=== PATIENT | female | born 1970 | race Caucasian/White ===

== ENCOUNTER 2018-03-22 03:31 | Inpatient (IN) | payer OTHER ==
[~2018-03-22] VITALS: Ht 177.8 cm; Wt 86.2 kg
[~2018-03-22 03:31] MED LIST: AMITRIPTYLINE H50 M2 PO; AMLODIPINE BESY10 M1 PO; COZAAR100 M1 PO; HYDROCHLOROTH12.5 M2 PO
--- NOTE | 2018-03-22 11:17 | Operative Report ---
Operative/Inv Procedure Report Surgery Date: 03/22/18 Name of Procedure: Anterior cervical decompression fusion with interdiscal cage and autologous bone graft and anterior plate fixation C3 4 C4 5 C5 6 harvesting of left anterior iliac crest morselized bone graft. Master graft implant graft site. These fluoroscopy. Pre-Operative Diagnosis: Cervical stenosis disc herniation [id number] C5 6 Post-Operative Diagnosis: Same additional diagnosis osteoporosis Estimated Blood Loss: 50ml to 100ml Surgeon/Furniture Decals Inspector: Gopal RAMIREZ,Pillo MARS Anesthesia: general endotracheal tube Operative/Procedure Note Note: After adequate general anesthesia was achieved the patient was placed in the supine position with the head turned to the left and the shoulders taped to the side. The right side of the neck and left anterior iliac crest were sterilely prepped and draped. A longitudinal incision was created adjacent to the visceral structures and sharply through the platysma. A blunt dissection was carried medial to the neurovascular bundle lateral to the visceral structures the esophagus was identified as was the carotid artery and the deep retractors were placed with avoidance of distraction on the recurrent laryngeal nerve I bent needle was placed within the C5 6 disc space and fluoroscopy was used to identify surgical level. Sharp annulotomy was created in the [id number] disc spaces and the curettes and disc rongeurs were used to debride the disc spaces there is severe bony degeneration at C45 with significant harden osteophytes posteriorly which were all debrided with the Kerrison and curettes. A section was carried through the posterior longitudinal ligament and annulus. A similar dissection was carried out above and below that level at C3 4 and C5 6. There is a large herniated fragment of disc material on the left side at C56. There was a large bony and thickened soft tissue ridge which was debrided at C34. Patient's bone was very soft. An incision was made in the anterior iliac crest on the left side and carried sharply over the crest with electrocautery. The oscillating saw was used to collect 3 wafers of corticocancellous bone. The wound was irrigated closed in layers with absorbable suture with helen in the skin. The cage trials were used to select the appropriate thickness of the cage. A narrow cage was used as the opportunity disc spaces and a wide cage was used at C5 6. The cages were packed with cancellus bone which was removed from the tricortical graft. Cages were tamped into position under fluoroscopic guidance. Cages were well away from the neural canal. An anterior plate was then applied and due to osteoporosis 14 mm screws were used with reasonable purchase in all 8 sites. The construct was checked in AP and lateral plane and found to be appropriate under fluoroscopy. The wound was irrigated hemostasis been achieved. A closure the platysma was performed with absorbable suture the skin was closed with nylon. After placement of sterile dressings a cervical collar was applied the patient was transferred to the stretcher Findings: Severe osteoporosis
--- NOTE | 2018-03-22 12:14 | Patient Discharge Instructions ---
Acute Coronary Syndrome Inclusion Criteria At DC or during hospital stay patient has or had the following: ACS DIAGNOSIS No Discharge Core Measures Meds if any: Prescribed or Continued at Discharge Meds if any: NOT Prescribed or Continued at Discharge Congestive Heart Failure Inclusion Criteria At DC or during hospital stay patient has or had the following: CHF DIAGNOSIS No Discharge Core Measures Meds if any: Prescribed or Continued at Discharge Meds if any: NOT Prescribed or Continued at Discharge Cerebrovascular accident Inclusion Criteria At DC or during hospital stay patient has or had the following: CVA/TIA Diagnosis No Discharge Core Measures Meds if any: Prescribed or Continued at Discharge Meds if any: NOT Prescribed or Continued at Discharge Venous thromboembolism Inclusion Criteria VTE Diagnosis No VTE Type NONE VTE Confirmed by (Test) NONE Discharge Core Measures - Per Current guidelines, there needs to be overlap - treatment for the first 5 days of Warfarin therapy. - If discharged on Warfarin prior to 5 days of - overlap therapy, the patient will need to be - assessed for post discharge needs including - *Post discharge parental anticoagulation - *Warfarin and/or parental anticoagulation education - *Follow up date to check INR post discharge At least 5 days overlap therapy as Inpatient No Meds if any: Prescribed or Continued at Discharge Note: Overlap Therapy is Warfarin and Anticoagulant Meds if any: NOT Prescribed or Continued at Discharge
[2018-03-22] MEDS ORDERED: TYLENOL EXTRA500 M2 PO (12:16)
[2018-03-22] MEDS ORDERED: OS-CAL 500+D31 EAC1 PO (12:16)
[2018-03-22] MEDS ORDERED: DULCOLAX10 M1 RC (12:16)
[2018-03-22] MEDS ORDERED: MULTIVITAMINS1 EAC9 PO (12:16)
[2018-03-22] MEDS ORDERED: MILK OF MA400 MG/52 PO (12:16)
[2018-03-22] MEDS ORDERED: PERCOCET 5-3251 EACH PO (12:16)
[2018-03-22] MEDS ORDERED: VITAMIN D31000 UNI2 PO (12:16)
[2018-03-22] MEDS ORDERED: COLACE100 M1 PO (12:16)
[2018-03-22 14:48] VITALS: BP 116/66
--- NOTE | 2018-03-22 15:00 | RADIOLOGY REPORT ---
EXAMINATION: CR CERVICAL SPINE OR CLINICAL INFORMATION: C3 fusion in OR COMPARISON: None TECHNIQUE: AP and lateral spot images from the C3 C6 fusion performed by Dr. Pillo Herron were submitted. Fluoroscopy time: 0.1 minutes. DOSE AREA PRODUCT: 0.0127 mGy-m2 (milligray-meter squared) FINDINGS/IMPRESSION: ACDF plate and interbody fusion cages are present from C3 through C6. Alignment appears anatomic. Endotracheal tube and a surgical pad are present in the anterior soft tissues.
--- NOTE | 2018-03-22 16:15 | PN- Neurosurgical ---
Subjective Subjective: POST-OP NOTE Patient reports nausea and was actively vomiting during visit. Reports anticipated neck discomfort. No dizziness. No shortness of breath. No chest pains. Objective Vital Signs and I&Os Vital Signs Date Time Temp Pulse Resp B/P B/P Pulse O2 O2 Flow FiO2 Mean Ox Delivery Rate 03/22 1448 97.2 72 16 116/66 03/22 1445 Nasal 2.0L Cannula Intake & Output 03/22 1600 03/22 0800 03/22 0000 03/21 1600 03/21 0800 03/21 0000 Intake Total Output Total Balance Patient 190 lb Weight Physical Exam: General - alert & oriented x 3. uncomfortable. no acute distress. Neck - soft cervical collar in place. dressing c/d/i. no drains. no hematoma. Lungs - clear bilaterally. no w/r/r. Cardiac - s1s2. reg. Abdomen - soft. nontender. Extremities - cool bilateral hands. palpable radial pulses b/l. strong drywall boardhanger strength b/l. nvi. calves soft and nontender. athrombics active b/l. left hip dressing c/d/i. Current Medications: Current Medications Sig/Kathryn Start time Last Medication Dose Route Stop Time Status Admin Acetaminophen 650 MG Q4P PRN 03/22 1215 AC PO Acetaminophen 0 .STK-MED ONE 03/22 0651 DC IV Amitriptyline HCl 50 MG QAM 03/23 900 AC PO Amlodipine Besylate 10 MG DAILY 03/23 09 AC PO Bisacodyl 10 MG DAILY NEEDED PRN 03/22 1215 AC OR Calcium 600 MG BID 03/22 2100 AC PO Cefazolin Sodium 1,000 MG IQ8 03/22 1600 AC 03/22 IV 03/23 0801 1606 Cefazolin Sodium 2,000 MG ONCE 03/22 0000 NR IV 03/22 2359 Cholecalciferol 1,000 IU DAILY 03/23 09 AC PO Docusate Sodium 100 MG BID 03/22 2100 AC PO Fentanyl Citrate 0 .STK-MED ONE 03/22 0653 DC .ROUTE Gelatin 0 .STK-MED ONE 03/22 0805 DC TOP Haloperidol 0 .STK-MED ONE 03/22 1250 DC .ROUTE Hydrochlorothiazide 12.5 MG DAILY 03/23 09 AC PO Hydromorphone HCl 0 .STK-MED ONE 03/22 1214 DC .ROUTE Hydromorphone HCl 0 .STK-MED ONE 03/22 0652 DC .ROUTE Ketorolac 0 .STK-MED ONE 03/22 1236 DC Tromethamine .ROUTE Lactated Ringer's 1,000 ML Q10H 03/22 1215 AC 03/22 IV 1430 Losartan Potassium 100 MG DAILY 03/23 09 AC PO Magnesium Hydroxide 30 ML Q8P PRN 03/22 1215 AC PO Midazolam HCl 0 .STK-MED ONE 03/22 0651 DC .ROUTE Morphine Sulfate 2 MG Q4P PRN 03/22 1215 AC IV Multivitamins 1 TAB DAILY 03/23 09 AC PO Ondansetron HCl 0 .STK-MED ONE 03/22 1231 DC .ROUTE Ondansetron HCl 4 MG Q6P PRN 03/22 121 AC IV Oxycodone/ 1 TAB Q4P PRN 03/22 121 AC Acetaminophen PO Oxycodone/ 2 TAB Q4P PRN 03/22 121 AC Acetaminophen PO Sodium Chloride 0 .STK-MED ONE 03/22 0841 DC IV Trimethobenzamide HCl 200 MG Q6P PRN 03/22 1215 AC IM Results Last 48 Hours of Labs: Laboratory Tests 03/22 619 Chemistry Sodium (137 - 145 mmol/L) 141 Potassium (3.5 - 5.1 mmol/L) 3.7 Chloride (98 - 107 mmol/L) 104 Carbon Dioxide (22 - 30 mmol/L) 28 Anion Gap (5 - 16) 8 BUN (7 - 17 mg/dL) 16 Creatinine (0.5 - 1.0 mg/dL) 0.8 Estimated GFR (>60 ml/min) > 60 BUN/Creatinine Ratio (7 - 25 %) 20.0 Glucose (65 - 99 mg/dL) 111 H Calcium (8.4 - 10.2 mg/dL) 9.0 Total Bilirubin (0.2 - 1.3 mg/dL) 0.4 AST (14 - 36 U/L) 26 ALT (9 - 52 U/L) 38 Alkaline Phosphatase (<127 U/L) 72 Total Protein (6.3 - 8.2 g/dL) 7.2 Albumin (3.5 - 5.0 g/dL) 4.4 Globulin (1.9 - 4.2 gm/dL) 2.8 Albumin/Globulin Ratio (1.1 - 2.2 %) 1.6 Urines Urine Test NEGATIVE Assessment/Plan Assessment/Plan This 47 year old female with hx headaches, hypertension, chronic back pain, osteoarthritis, hx dvt (left leg, 13 years ago), who is POD#0 s/p acdf with interdiscal cage and autologous bone graft and anterior plate fixation C3-4, C4- 5, C5-6 harvesting of left aicbg, for cervical stenosis disc herniation, post-op nausea/vomiting advance diet as tolerated anti-emetics as needed pain control as ordered julius-operative ancef x 3 doses soft cervical collar in place oob/ambulation alps - dvt ppx anti-hypertensives ordered for hx htn will d/w Sandy Valente PA-C who will d/w Core Measures Venous Thromboembolism VTE Risk Factors VTE (Previous) No Mechanical VTE Prophylaxis d/t N/A MechProphylax Ordered No VTE Pharm Prophylaxis d/t Surgical Contraindication
[2018-03-22 21:46] VITALS: BP 110/70
[2018-03-23 01:59] VITALS: BP 112/68
[2018-03-23 06:00] VITALS: BP 120/76
--- NOTE | 2018-03-23 08:20 | PN- Neurosurgical ---
Subjective Subjective: Patient had nausea last evening and yesterday that has resolved currently. She has pain in her neck that radiates to the left shoulder which is moderate, the Percocet was causing her nausea and she felt as though it was ineffective Objective Vital Signs and I&Os Vital Signs Date Time Temp Pulse Resp B/P B/P Pulse O2 O2 Flow FiO2 Mean Ox Delivery Rate 03/23 0600 97.7 70 18 120/76 97 Nasal Cannula 03/23 0159 97.9 73 18 112/68 98 Room Air 03/23 0000 Nasal 2.0L Cannula 03/22 2146 97.8 77 20 110/70 95 Nasal Cannula 03/22 1600 Room Air 03/22 1448 97.2 72 16 116/66 03/22 1445 Nasal 2.0L Cannula Intake & Output 03/23 1600 03/23 0800 03/23 0000 03/22 1600 03/22 0803/22 0000 Intake Total 1100 700 540 Output Total 0 Balance 1100 700 540 Intake, IV 800 500 300 Intake, Oral 300 200 240 Number 0 Bowel Movements Output, Urine 0 Patient 190 lb Weight Physical Exam: Well-developed well-nourished no apparent distress. HEENT: Atraumatic, extraocular motion intact Neck: Supple, no lymphadenopathy Mild swelling, dressing clean dry and intact, soft cervical collar in place, trachea midline Respiratory: No respiratory distress Extremities: No edema, no calf pain Left ASIS bone graft site dressing clean dry and intact, mild swelling neurovascularly intact distally with sensation and motor grossly intact, no perceived deficits Neuro: Alert and oriented x3 Psych: Mood affect normal, normal memory normal judgment. Skin: Warm and dry, no rash on exposed skin Results Last 48 Hours of Labs: Laboratory Tests 03/22 619 Chemistry Sodium (137 - 145 mmol/L) 141 Potassium (3.5 - 5.1 mmol/L) 3.7 Chloride (98 - 107 mmol/L) 104 Carbon Dioxide (22 - 30 mmol/L) 28 Anion Gap (5 - 16) 8 BUN (7 - 17 mg/dL) 16 Creatinine (0.5 - 1.0 mg/dL) 0.8 Estimated GFR (>60 ml/min) > 60 BUN/Creatinine Ratio (7 - 25 %) 20.0 Glucose (65 - 99 mg/dL) 111 H Calcium (8.4 - 10.2 mg/dL) 9.0 Total Bilirubin (0.2 - 1.3 mg/dL) 0.4 AST (14 - 36 U/L) 26 ALT (9 - 52 U/L) 38 Alkaline Phosphatase (<127 U/L) 72 Total Protein (6.3 - 8.2 g/dL) 7.2 Albumin (3.5 - 5.0 g/dL) 4.4 Globulin (1.9 - 4.2 gm/dL) 2.8 Albumin/Globulin Ratio (1.1 - 2.2 %) 1.6 Urines Urine Test NEGATIVE Assessment/Plan Assessment/Plan This 47 year old female with hx headaches, hypertension, chronic back pain, osteoarthritis, hx dvt (left leg, 13 years ago), who is POD#1 s/p acdf with interdiscal cage and autologous bone graft and anterior plate fixation C3-4, C4- 5, C5-6 harvesting of left aicbg, for cervical stenosis disc herniation Regular diet anti-emetics as needed pain control: Percocet ineffective and causing adverse side effects, will switch to Dilaudid p.o. julius-operative ancef x 3 doses soft cervical collar in place oob/ambulation alps - dvt ppx anti-hypertensives ordered for hx htn Potential discharge later today versus tomorrow Core Measures Venous Thromboembolism VTE Risk Factors VTE (Previous) No Mechanical VTE Prophylaxis d/t N/A MechProphylax Ordered No VTE Pharm Prophylaxis d/t Surgical Contraindication
[2018-03-23 11:28] VITALS: BP 120/80
[2018-03-23 14:24] VITALS: BP 112/70
--- NOTE | 2018-03-23 14:33 | Surgical Discharge Summary ---
Visit Information Visit Dates Admission Date: 03/22/18 Discharge Date: 03/24/18 History of Present Illness Chief Complaint: Pain realted to Cervical stenosis disc herniation C3/4 C4/5 C5/6 Medical History Blood Transfusion Hx: No Neurological: headaches EENT: NONE Cardiovascular: hypertension Respiratory: NONE Gastrointestinal: NONE Hepatic: NONE Renal: NONE Musculoskeletal: chronic back pain, disk herniation (left lateral L3-4 disc herniat), degen joint disease, osteoarthritis, sciatica, spinal stenosis Psychiatric: NONE Endocrine: NONE Blood Disorders: NONE (left leg 13 years ago), DVT Cancer(s): NONE QUALITY ASSURANCE SUPERVISOR/Reproductive: NONE Isolation History: Standard Surgical History Pertinent Surgical History: appendectomy, cholecystectomy, s/p T&A s/p pancreas biopsy with history of pancreatitis Family History Relations & Conditions If Any: maternal grandmother, ; Cause: Ovarian cancer. MOTHER (fibromyalgiahypertension). Age 71. FATHER (alive and well). Age 71. maternal grandfather (Diabetes Mellitus). . Psychosocial History Where Do You Live? Home Who Do You Live With? Patient/Self Services at Home: None What is Your Primary Language? Lao Review of Systems: See H&P Hospital Course Course Attending Physician: Pillo Herron MD Primary Care Physician: Unknown Hospital Course: Kassidy was admitted to the hospital for a scheduled anterior cervical decompression fusion with interdiscal cage and autologous bone graft and anterior plate fixation C3 4 C4 5 C5 6 with harvesting of left anterior iliac crest morselized bone graft. She tolerated the procedure well and was transferred to a general surgical floor. She experienced post operative nausea and vomitting which resolved with an adjustment of pain medication. Throughout her hospital course, her vital signs were stable and within normal limits and her neurovascular status remained intact. She was evaluated by DR HERRON on day of discharge and deemed appropriate for discharge. Allergies: Coded Allergies: No Known Allergies (03/15/18) Disposition Summary Disposition Principal Diagnosis: Cervical stenosis disc herniation [id number] C5 6 Additional Diagnosis: osteoporosis Discharge Disposition: home or self care Discharge Instructions General Discharge Information Code Status: Full Code Patient's Diet: Regular, advance as tolerated Patient's Activity: As tolerated, soft collar Follow-Up Instructions/Appts: Arrangements to be made for follow up per Dr. Herron and his affiliated team in [facility]. Medications at Discharge Discharge Medications: Stop taking the following medications: Amitriptyline HCl (Amitriptyline HCl) 50 MG TABLET ORAL Every Morning Continue taking these medications: Losartan (Cozaar) 100 MG TABLET 1 Tablet ORAL DAILY Hydrochlorothiazide (Hydrochlorothiazide) 12.5 MG TABLET 1 Tablet ORAL DAILY Amlodipine Besylate (Amlodipine Besylate) 10 MG TABLET 1 Tablet ORAL DAILY Start taking the following new medications: Acetaminophen (Tylenol Extra Strength) 500 MG TABLET 1 Tablet ORAL THREE TIMES DAILY as needed for TEMP>101 Qty = 90 No Refills Bisacodyl (Dulcolax) 10 MG SUPP.RECT 1 Suppository RECTAL DAILY as needed for CONSTIPATION Qty = 10 No Refills Calcium Carbonate/Vitamin D3 (Os-Yovany 500+D3 Caplet) 500 MG-200 TABLET 1 Tablet ORAL TWICE DAILY Qty = 60 No Refills Cholecalciferol (Vitamin D3) 1,000 UNIT TABLET 1 Tablet ORAL DAILY Qty = 30 No Refills Docusate Sodium (Colace) 100 MG CAPSULE 1 Capsule ORAL TWICE DAILY as needed for CONSTIPATION Qty = 60 No Refills Magnesium Hydroxide (Milk Of Magnesia) 400 MG/5 ML ORAL.SUSP 5 Milliliters ORAL EVERY 8 HOURS NEEDED as needed for CONSTIPATION Qty = 300 No Refills Multiple Vitamin (Multivitamins) 1 EACH TABLET 1 Tablet ORAL DAILY Qty = 30 No Refills Oxycodone HCl/Acetaminophen (Percocet 5-325 MG Tablet) 5 MG-325 MG TABLET 1-2 Tablet ORAL EVERY 4-6 HOURS as needed for PAIN Qty = 90 No Refills Ondansetron (Zofran Odt) 8 MG TAB.RAPDIS 1 Tablet ORAL THREE TIMES DAILY Qty = 30 No Refills Instructions: place on top of the tongue where it will dissolve, then swallow
[2018-03-23] MEDS ORDERED: ZOFRAN ODT8 M1 PO (14:50)
[2018-03-23 22:35] VITALS: BP 122/60
[2018-03-24 02:15] VITALS: BP 146/88
[2018-03-24 06:00] VITALS: BP 138/82
--- NOTE | 2018-03-24 08:07 | PN- Neurosurgical ---
Subjective Subjective: Patient feeling much better today. The Percocet is helping her pain. She denies any fever or flulike illness, no radicular symptoms. No nausea no vomiting. She feels as though she is ready to be discharged home Objective Vital Signs and I&Os Vital Signs Date Time Temp Pulse Resp B/P B/P Pulse O2 O2 Flow FiO2 Mean Ox Delivery Rate 03/24 0600 98.2 81 18 138/82 92 Room Air 03/24 0215 98.2 73 18 146/88 94 Room Air 03/23 2235 98.5 76 18 122/60 92 03/23 1424 97.9 87 20 112/70 93 Room Air 03/23 1128 97.9 78 20 120/80 94 Room Air 03/23 0907 70 120/76 03/23 0907 70 120/76 Intake & Output 03/24 1600 03/24 0800 03/24 0000 03/23 1600 03/23 0800 03/23 0000 Intake Total 500 1100 1240 Output Total 0 Balance 500 1100 1240 Intake, IV 400 800 800 Intake, Oral 100 300 440 Number 0 Bowel Movements Output, Urine 0 Physical Exam: Well-developed well-nourished no apparent distress. HEENT: Atraumatic, extraocular motion intact Neck: Supple, no lymphadenopathy Mild swelling, dressing clean dry and intact, soft cervical collar in place, trachea midline, dressing changed, incision without signs of infection, dry sterile dressing applied and soft cervical collar reapplied Respiratory: No respiratory distress Extremities: No edema, no calf pain Left ASIS bone graft site dressing clean dry and intact, dressing changed, incision without signs of infection, no drainage, dry sterile dressing applied neurovascularly intact distally with sensation and motor grossly intact, no perceived deficits Neuro: Alert and oriented x3 Psych: Mood affect normal, normal memory normal judgment. Skin: Warm and dry, no rash on exposed skin Assessment/Plan Assessment/Plan This 47 year old female with hx headaches, hypertension, chronic back pain, osteoarthritis, hx dvt (left leg, 13 years ago), who is POD#2 s/p acdf with interdiscal cage and autologous bone graft and anterior plate fixation C3-4, C4- 5, C5-6 harvesting of left aicbg, for cervical stenosis disc herniation Regular diet Percocet for pain soft cervical collar in place oob/ambulation alps - dvt ppx Stable for discharge home today Patient seen and examined with Dr. Herron Core Measures Venous Thromboembolism VTE Risk Factors VTE (Previous) No Mechanical VTE Prophylaxis d/t N/A MechProphylax Ordered No VTE Pharm Prophylaxis d/t Surgical Contraindication
[2018-03-24 08:32] VITALS: BP 138/82
== END 2018-03-24 11:15 | DRG 473 ==
LOC: SDA 03:31 → ENRESERV 12:10 → ENTRNSPT 13:47 → 2NA 13:57 → EDTRNSPT 14:08 → EDTRNSPTSTS 14:08 → CMPTRNSPT 14:17 → ENPENDDIS 03-24 08:16 → 2NA 03-24 11:15
PROC: 0RB30ZZ Excision of Cervical Vertebral Disc, Open Approach (ICD-10-PCS; principal; 2018-03-22)
PROC: 0RG20A0 Fusion of 2 or more Cervical Vertebral Joints with Interbody Fusion Device, Anterior Approach, Anterior Column, Open Approach (ICD-10-PCS; principal; 2018-03-22)
PROC: 07DR3ZZ Extraction of Iliac Bone Marrow, Percutaneous Approach (ICD-10-PCS; principal; 2018-03-22)
PROC: 00NW0ZZ Release Cervical Spinal Cord, Open Approach (ICD-10-PCS; principal; 2018-03-22)
DX: M50.223 Other cervical disc displacement at C6-C7 level (principal); M50.21 Other cervical disc displacement, high cervical region; M81.0 Age-related osteoporosis without current pathological fracture; E78.5 Hyperlipidemia, unspecified; Z86.718 Personal history of other venous thrombosis and embolism; R11.10 Vomiting, unspecified; I10 Essential (primary) hypertension
CPT/HCPCS: 2NASP; 36415; 76000; 81025; 97110-GO; 97116-GO; 97161-GP; 97530-GO; C1713; J0131; J0690; J1630; J1885; J2405; J3101; J3250; J3490; J7120